=== PATIENT | female | born 1945 | race Caucasian/White ===

== ENCOUNTER → 2017-02-25 | Day surgery (SDC) | payer OTHER ==
[2017-02-13 11:39] VITALS: Ht 160 cm; Wt 51.8 kg
[~2017-02-25] VITALS: Ht 160 cm; Wt 51.8 kg
[~2017-02-25] MED LIST: ACETAMINOPHEN 325 MG TAB PO PRN; ASPCH81X PO; ATROPINE SULFATE 0.1 MG/ML 5ML SYR IV PRN; CHOL100010 PO; CYAN100020 PO; FENTANYL CITRATE INJ 50 MCG/1 ML 2 ML VIAL ONE; LACTATED RINGER'S 1000ML 500 ML IV ONE; LIDOCAINE 3.5% OPH GEL PER APPLICATION CHARGE OPL SCH; LIDOCAINE 4% OP SOLN DROP CHARGE ONE; LIDOCAINE 4% OP SOLN DROP CHARGE OPL SCH; MIDAZOLAM HCL 1 MG/ML 2ML VIAL ONE; MOXIFLOXACIN OPH SOLN PER DROP CHARGE ONE; POVIDONE-IODINE OP SOLN 30 ML BTL ONE; PROPARACAINE 0.5% OP SOLN PER DROP CHARGE OPL SCH
[2017-02-25] MEDS: MOXIFLOXACIN OPH SOLN PER DROP CHARGE OPL SCH ×3 (10:33→10:53)
--- NOTE | 2017-02-25 10:44 | History & Physical Bridge - [place] ---
H&P Re-Evaluation Bridge Note: I have examined the patient, reviewed the History & Physical and in the interval since the performance of the History & Physical I have noted the following changes of clinical significance: No changes noted
[2017-02-25 11:58] VITALS: TEMP 36.5
--- NOTE | 2017-02-25 11:59 | Discharge Instructions-SurgCtr ---
Discharge Instructions Date of Service February 25, 2017. 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 Post Anesthesia Instructions: If you have had General Anesthesia or IV Sedation: * Do not drive today. * Resume driving when surgeon permits. * Do not make important decisions or sign legal documents today. * Call surgeon for: 1. Temperature elevations greater than 101 degrees F. 2. Uncontrollable pain. 3. Excessive bleeding. 4. Persistent nausea and vomiting. 5. Medication intolerance (nausea, vomiting or rash). * For nausea and vomiting use only clear liquids such as: tea, soda, bouillon until nausea subsides, then gradually increase diet as tolerated. * If you have any concerns or questions, call your surgeon's office. If physician is unavailable and it is an emergency, call 911 or go to the nearest emergency room. . Instructions / Follow-Up Instructions / Follow-Up ACTIVITY RECOMMENDATIONS: * Light activities * You may walk outside, read, watch television. * Mild irritation and blurred vision are common for the first few days, redness around the white part of the eye is common. MEDICATIONS: Resume previous medications unless instructed otherwise by your surgeon. Eye drops (today and tomorrow): Gatifloxacin - one drop in operative eye every 2 hours while awake Prednisolone 1% - one drop in operative eye every 2 hours while awake Vicodin 5/300- 1 -2 tabs by mouth every 6 hours as needed for pain SPECIAL CARE INSTRUCTIONS: * If any problems or concerns, please call Dr. Bowie's office at . FOLLOW UP VISIT: Follow-up with Dr. Bowie in the [place] office as scheduled. If not already scheduled, please call the office at . Diet Recommendations Home Diet: resume previous diet Procedures Procedures Performed: Left Eye Lamellar Keratectomy Without EDTA Chelation Pending Studies Studies pending at discharge: no Medical Emergencies . Who to Call and When: Medical Emergencies: If at any time you feel your situation is an emergency, please call 911 immediately. . Non-Emergent Contact Non-Emergency issues call your: Fish Cleaner Machine Tender . . "Provider Documentation" section prepared by Raoul Bowie. .
--- NOTE | 2017-02-25 12:00 | [facility] Post Operative Brief Note ---
Immediate Operative Summary Operative Date February 25, 2017. Pre-Operative Diagnosis Left Eye Nodular Corneal Degeneration Post-Operative Diagnosis Same Procedure(s) Performed Left Eye Lamellar Keratectomy Without EDTA Chelation Surgeon Dr Bowie Ordnance Mechanic Surgeon(s) None Estimated Blood Loss 0ml Findings quyen's nodular degeneration left eye Specimens None Complication(s) None Disposition Recovery Room / PACU
--- NOTE | 2017-02-25 12:02 | Anesthesia Progress Nt - [facility] ---
Anesthesia Post Op Note Date & Time February 25, 2017 at 12:02 Vital Signs Pain Intensity: 0 Vital Signs Past 12 Hours Date Time Temp Pulse Resp B/P Pulse Ox O2 Delivery O2 Flow Rate FiO2 02/25/17 10:16 36.4 67 16 163/78 99 Room Air Notes Mental Status: alert / awake / arousable, participated in evaluation Pt Amnestic to Procedure: Yes Nausea / Vomiting: adequately controlled Pain: adequately controlled Airway Patency, RR, SpO2: stable & adequate BP & HR: stable & adequate Hydration State: stable & adequate Anesthetic Complications: no major complications apparent
[2017-02-25 12:22] VITALS: BP 154/80; PULSE 64; O2SAT 100
--- NOTE | 2017-02-25 12:45 | OPERATIVE REPORT ---
DATE OF OPERATION: 02/25/2017 PREOPERATIVE DIAGNOSIS: Salzmann nodular degeneration, left eye. POSTOPERATIVE DIAGNOSIS: Same. PROCEDURE PERFORMED: Lamellar keratectomy, left eye. COMPLICATIONS: None. ESTIMATED BLOOD LOSS: None. ANESTHESIA: Local with sedation. DESCRIPTION OF PROCEDURE: After informed consent was obtained in the holding area, the patient was taken to the operating room where cardiac monitoring leads and oxygen by nasal cannula was administered by anesthesia. Gentle IV sedation was given, and the patient's left eye was prepped and draped in usual sterile fashion. A wire lid speculum was placed in the left eye and the operating microscope was swung into position. Using 0.12 forceps and a andreafski blade, the Salzmann nodules and epithelium were removed from the entirety of the corneal surface leaving behind a millimeter epithelium along the limbal margin. Once this was completed, a bandage contact lens was placed on the eye as well as some Vigamox drops. The wire lid speculum was removed from the eye and the patient was taken to the recovery area in stable condition. I attest to the content of the Intraoperative Record and any orders documented therein. Any exceptio ns are noted below.
== END | disposition home or self-care (01) ==
LOC: X.SURG 10:09
PROVIDERS: ATTEND Ophthalmology
DX: H18.452 Nodular corneal degeneration, left eye (principal); M06.9 Rheumatoid arthritis, unspecified; Z87.891 Personal history of nicotine dependence